=== PATIENT | female | born 1970 | race Caucasian/White ===

== ENCOUNTER 2020-11-25 19:53 | Emergency (ER) | payer OTHER ==
[2020-11-25 20:07] VITALS: RESP 18; TEMP 98.2
[2020-11-25] MEDS ORDERED: HYDROmorphone 1 MG/ML 1 ML SYRINGE IM STA (20:21)
--- NOTE | 2020-11-25 20:50 | XR ---
EXAMINATION TYPE: XR wrist complete LT DATE OF EXAM: 11/25/2020 COMPARISON: NONE HISTORY: Fall. Pain. TECHNIQUE: 4 views FINDINGS: Carpal bones are intact. I see no fracture nor dislocation. Joint spaces are normal. There are no erosions. IMPRESSION: Negative left wrist exam.
--- NOTE | 2020-11-25 20:54 | CT ---
EXAMINATION TYPE: CT facial bones wo con DATE OF EXAM: 11/25/2020 COMPARISON: None HISTORY: Fall. Pain. CT DLP: mGycm Automated exposure control for dose reduction was used. Images obtained from the bottom of the mandible to the top of the frontal sinuses without contrast. There is left side periorbital soft tissue swelling. There is scalp hematoma over the left frontal stef ne. Orbital margins are intact. There is no evidence of a blowout fracture. There is no evidence of r etro-orbital mass. There is fairly normal aeration of the paranasal sinuses. I see no bony destructive process. Zygomati c arches appear normal. Maxilla is intact. Nasal bone is intact. The mandibular ring is intact. Temporomandibular joints appear normal. IMPRESSION: Left side periorbital hematoma. No fracture seen.
--- NOTE | 2020-11-25 20:56 | CT ---
EXAMINATION TYPE: CT brain america rodriguez DATE OF EXAM: 11/25/2020 COMPARISON: None HISTORY: Fall injury CT DLP: 1179.9 mGycm Automated exposure control for dose reduction was used. Images obtained of the brain and cervical spine without contrast. The ventricles and sulci appear normal. There is no mass effect nor midline shift. There is no sign o f intracranial hemorrhage. The calvarium is intact. There is no evidence of cerebral edema. There is left frontal periorbital scalp hematoma. This measures up to 10 mm in thickness. The cervical vertebra have normal alignment. Disc spaces are fairly normal. Posterior elements are in tact. Facet joints are intact. Prevertebral soft tissues are intact. The skull base is intact. There is minor facet arthropathy in the upper cervical spine. IMPRESSION: No intracranial abnormality. Negative CT scan cervical spine.
[2020-11-25 21:11] VITALS: BP 137/74; PULSE 58
[2020-11-25] MEDS ORDERED: KETOROLAC 15 MG/ML 1 ML VIAL IM STA (21:16)
--- NOTE | 2020-11-25 21:19 | ED ---
General Adult HPI - General Chief complaint: Fall Stated complaint: Fall, fac lac Time Seen by Provider: 11/25/20 20:09 Source: patient, family Mode of arrival: wheelchair Limitations: no limitations - History of Present Illness Initial comments: 50-year-old female patient presents to the emergency department today for evaluation of facial injury and left wrist pain after experiencing a fall. Patient states about an hour ago she was walking out of the house when she tripped over the dog's leash and fell hitting her face on the deck. She denies any loss of consciousness. She is reporting pain around her left eye. Reports headache. Denies any new neck or back pain. States she is having pain to the left wrist. Denies numbness or tingling to the extremities. States she has some mild discomfort to the bilateral knees. States her last tetanus vaccine was about 3 years ago. Takes suboxone currently. Patient denies any chest pain, shortness of breath, dizziness, weakness, abdominal pain, nausea, vomiting, or difficulties with bowel movements or urination. - Related Data Previous Rx's Medication Instructions Recorded Ibuprofen [Motrin] 600 mg PO Q8HR PRN #30 tab 11/25/20 Allergies Allergy/AdvReac Type Severity Reaction Status Date / Time No Known Allergies Allergy Verified 11/25/20 20:07 Review of Systems ROS Statement: Those systems with pertinent positive or pertinent negative responses have been documented in the HPI. ROS Other: All systems not noted in ROS Statement are negative. Past Medical History Past Medical History: Seizure Disorder Additional Past Medical History / Comment(s): epilepsy History of Any Multi-Drug Resistant Organisms: None Reported Past Surgical History: Appendectomy, Cholecystectomy, Hysterectomy, Orthopedic Surgery Smoking Status: Never smoker Past Alcohol Use History: None Reported Past Drug Use History: None Reported General Exam Limitations: no limitations General appearance: alert, in no apparent distress, other (Physical well- developed, well-nourished adult female patient in no acute distress. Vital signs upon presentation are temperature 98.2F, pulse 80, respirations 18, blood pressure 154/93, pulse ox 99% on room air.) Eye exam: Present: PERRL, EOMI, periorbital swelling (Left supraoribital hematoma), periorbital tenderness (Left superior orbital), other (No globe injury. No hyphema. Small abrasion to the left eyebrow.). Absent: scleral icterus, conjunctival injection ENT exam: Present: normal exam, normal oropharynx, mucous membranes moist Neck exam: Present: normal inspection, full ROM, other (Nontender, no step-off, no deformity to firm midline palpation of the posterior cervical spine. Full range of motion without pain or limitation.). Absent: tenderness, meningismus, lymphadenopathy Respiratory exam: Present: normal lung sounds bilaterally. Absent: respiratory distress, wheezes, rales, rhonchi, stridor Cardiovascular Exam: Present: regular rate, normal rhythm, normal heart sounds. Absent: systolic murmur, diastolic murmur, rubs, gallop, clicks GI/Abdominal exam: Present: soft, normal bowel sounds. Absent: distended, tenderness, guarding, rebound, rigid Extremities exam: Present: normal inspection, full ROM, tenderness (Left wrist, no anatomical snuffbox tenderness), normal capillary refill, other (Skin to the left arm and hand is pink, warm, dry. Cap refill less than 3 seconds. Radial pulses 2+ and equal bilaterally. Eccchymosis noted to bilateral knees. Superficial abrasion to the left knee. Full ROM. Pedal pulses 2+.). Absent: pedal edema, joint swelling, calf tenderness Back exam: Present: normal inspection, other (Nontender, no step-off, no deformity to firm midline palpation of the thoracic and lumbar vertebrae. Full range of motion without pain or limitation.). Absent: vertebral tenderness Neurological exam: Present: alert, oriented X3, CN II-XII intact Psychiatric exam: Present: normal affect, normal mood Skin exam: Present: warm, dry, intact, normal color. Absent: rash Course Vital Signs 11/25/20 11/25/20 20:05 21:09 Temperature 98.2 F Pulse Rate 80 58 L Respiratory 18 18 Rate Blood Pressure 154/93 137/74 O2 Sat by Pulse 99 97 Oximetry Medical Decision Making - Medical Decision Making 50 year-old female patient presented to the emergency department for evaluation of facial injury and wrist injury after a fall. Physical examination revealed left supraorbital hematoma, left supraorbital abrasion. She also had tenderness over the left wrist. Neurovascular status is intact. She had contusions noted over the bilateral knees. No spinal tenderness noted. She is neurologically intact with no focal deficits. CT brain C-spine were negative. CT facial bones negative. X-ray of the left wrist is negative. Patient is able to bear weight without significant discomfort to the knee so we did not x-ray them. She will be discharged with prescription for ibuprofen. She is instructed to rest, ice, elevate injuries. She is instructed to follow-up with the primary care physician for recheck in 1-2 days. Return parameters were discussed in detail. She verbalizes understanding and agrees with this plan. Case discussed with my attending Dr. Foster. - Radiology Data Radiology results: report reviewed, image reviewed CT brain and C-spine without contrast was obtained. Report was reviewed in its entirety. Impression by Dr. Araujo shows no intracranial abnormality. Negative computed tomography scan cervical spine. CT facial bones without contrast was obtained. Report was reviewed in its entirety. Impression by Dr. Araujo shows left-sided periorbital hematoma. No fracture seen. 4 views of the left wrist are obtained. Report is reviewed in its entirety. Impression by Dr. Araujo shows negative left wrist exam. Disposition Clinical Impression: Periorbital hematoma of left eye, Abrasion of left eyebrow, Contusion of right knee, Contusion of left knee, Left wrist sprain Disposition: HOME SELF-CARE Condition: Good Instructions (If sedation given, give patient instructions): Black Eye (ED), Contusion in Adults (ED), Wrist Sprain (ED), Hematoma (ED) Additional Instructions: Rest, ice, elevate the left wrist. Apply ice to your face several times per day. Take medications as directed. Follow up with her primary care physician for recheck as soon as possible. Return to the urgency dependent for any new, worsening, or concerning symptoms. Prescriptions: Ibuprofen [Motrin] 600 mg PO Q8HR PRN #30 tab PRN Reason: Pain Is patient prescribed a controlled substance at d/c from ED?: No Referrals: None,Stated [Primary Care Provider] - 1-2 days Time of Disposition: 21:19
== END 2020-11-25 21:30 | disposition home or self-care (01) ==
LOC: EC 19:53
DX: S63.502A Unspecified sprain of left wrist, initial encounter (principal); S00.12XA Contusion of left eyelid and periocular area, initial encounter; S80.02XA Contusion of left knee, initial encounter; S80.01XA Contusion of right knee, initial encounter; G40.909 Epilepsy, unspecified, not intractable, without status epilepticus; W01.0XXA Fall on same level from slipping, tripping and stumbling without subsequent striking against object, initial encounter; Y93.01 Activity, walking, marching and hiking; Z90.710 Acquired absence of both cervix and uterus; Z90.49 Acquired absence of other specified parts of digestive tract
CPT/HCPCS: 73110; 72125; 70486; 70450; 99284; 96372; J1170; J1885